=== PATIENT | male | born 1960 | race Caucasian/White ===

== ENCOUNTER 2021-03-17 09:40 | Inpatient (IN) | payer BC ==
[2021-03-17 10:45] LABS: Basophils % 0.3 % (0-1.3); Hematocrit 41.5 % (39.6-49.0); Lymphocytes % 6.3 % (15.3-44.8); MPV 7.6 fL (7.6-11.3); RBC Red Blood Cell Count 4.57 M/uL (4.33-5.43)
[2021-03-17] MEDS ORDERED: FAMOTIDINE 20 MG/2 ML VIAL IV ONE (10:46)
[2021-03-17] MEDS ORDERED: ONDANSETRON 4 MG/2 ML VIAL ONE (10:46)
[2021-03-17] MEDS ORDERED: MORPHINE 4 MG/ML SYR ONE (10:46)
[2021-03-17 10:55] LABS: ALT/SGPT 26 U/L (12-78); AST/SGOT 13 U/L (15-37); Albumin 3.8 g/dL (3.4-5.0); Alkaline Phosphatase 83 U/L (45-117); BUN Blood Urea Nitrogen 13 mg/dL (7-18); Bicarbonate 28 mmol/L (21-32); Bilirubin Direct 0.2 mg/dL (0-0.2); Bilirubin Total 0.7 mg/dL (0.2-1.0); Glucose Level 133 mg/dL (74-106); Lipase 105 U/L (73-393); Potassium 4.1 mmol/L (3.5-5.1); Protein, Total 7.4 g/dL (6.4-8.2); Sodium Level 137 mmol/L (136-145); Troponin (Emerg Dept Use Only) < 0.02 ng/mL (0.0-0.045)
--- NOTE | 2021-03-17 11:33 | RAD REPORT ---
EXAM DESCRIPTION: CT - Abdomen Pelvis W Contrast - 03/17/2021 11:07 am CLINICAL HISTORY: ABD PAIN COMPARISON: No comparisons TECHNIQUE: Biphasic, helical CT imaging of the abdomen and pelvis was performed following 100 ml non -ionic IV contrast. No oral contrast administered. All CT scans are performed using dose optimization technique as appropriate and may include automated exposure control or mA/KV adjustment according to patient size. FINDINGS: No suspicious findings in the lung bases. The liver, spleen, and pancreas show no suspicious findings. Well filled, nondilated gallbladder is s een without wall thickening or edema. There are numerous gallstones present the gallbladder with a 10 millimeter stone at the neck. No biliary tree dilatation. Symmetric renal function is seen with no hydronephrosis or suspicious renal mass. No pyelonephritis o r acute parenchymal process. No bladder abnormalities. No adrenal abnormalities. No dilated bowel loops or bowel wall thickening. Appendix is not clearly defined. No evidence for arina endicitis. Patient has a few small sub centimeter central mesentery and right lower quadrant lymph no deep. No free air, free fluid or inflammatory stranding. Small fat filled bilateral inguinal hernias are present. No suspicious bony findings. IMPRESSION: Contrast enhanced CT abdomen and pelvis showing no emergent finding. Multi stone cholelithiasis is present without wall thickening or edema. No biliary tree dilatation.
--- NOTE | 2021-03-17 11:51 | ER ---
Nurse's Notes [facility] Name: Wing Lowe Age: 61 yrs Sex: Male : 1960 Arrival Date: 03/17/2021 Time: 09:43 Bed 13 Private MD: Diagnosis: Cholelithiasis Presentation: 03/17 09:49 Chief complaint: Patient states: Epigastric pain with N/V since 1030 last night. ll1 Coronavirus screen: Client denies travel out of the [place] in the last 14 days. At this time, the client does not indicate any symptoms associated with coronavirus-19. Ebola Screen: Patient denies travel to an Ebola-affected area in the 21 days before illness onset. Initial Sepsis Screen: Does the patient meet any 2 criteria? No. Patient's initial sepsis screen is negative. Does the patient have a suspected source of infection? Yes: Acute abdominal pain. Risk Assessment: Do you want to hurt yourself or someone else? Patient reports no desire to harm self or others. Onset of symptoms was March 16, 2021. 09:49 Method Of Arrival: Ambulatory [facility] 09:49 Acuity: SAEID 3 ll1 Triage Assessment: 11:00 General: Appears in no apparent distress. Behavior is calm, cooperative, appropriate tr6 for age. Pain: Complains of pain in RUQ. EENT: No deficits noted. Neuro: No deficits noted. Cardiovascular: No deficits noted. Respiratory: No deficits noted. GI: Reports painin RUQ. : No deficits noted. : No deficits noted. 11:00 Musculoskeletal: No deficits noted. tr6 Historical: - Allergies: 09:50 PENICILLINS; ll1 - PMHx: 09:50 Hypertension; ll1 - PSHx: 09:50 ear SX; ll1 - Immunization history:: Flu vaccine is not up to date. - Social history:: Smoking status: Patient denies any tobacco usage or history of. Screenin:12 Abuse screen: Denies threats or abuse. Denies injuries from another. Nutritional tr6 screening: No deficits noted. Tuberculosis screening: No symptoms or risk factors identified. Fall Risk None identified. Assessment: 12:05 Reassessment: Patient states feeling better. tr6 Vital Signs: 09:49 Pulse 92; Resp 17; Temp 97.5; Pulse Ox 99% ; Weight 92.99 kg; Height 5 ft. 10 in. ll1 (177.80 cm); Pain 9/10; 09:49 BP 173 / 99; ll1 11:12 BP 167 / 99; Pulse 72; Resp 18; Pulse Ox 96% on R/A; tr6 09:49 Body Mass Index 29.41 (92.99 kg, 177.80 cm) ll1 ED Course: 09:43 Patient arrived in ED. as 09:50 Triage completed. ll1 09:51 Arm band placed on. ll1 10:02 Zaid Malik, SALVATORE is PHCP. pm1 10:02 Gregory Hassan MD is Attending Physician. pm1 10:13 Caty Arora, VICK is Primary Nurse. tr6 10:25 Inserted saline lock: 18 gauge in right antecubital area, using aseptic technique. tr6 Blood collected. 11:07 CT Abd/Pelvis - IV Contrast Only In Process Unspecified. EDMS 11:12 Patient has correct armband on for positive identification. Bed in low position. Call tr6 light in reach. Side rails up X 1. 11:12 No provider procedures requiring assistance completed. tr6 11:50 Marlon Nj MD is Referral Physician. pm1 12:12 IV discontinued, intact, bleeding controlled, No redness/swelling at site. Pressure tr6 dressing applied. Administered Medications: 10:35 Drug: Pepcid (famotidine) 20 mg Route: IVP; Site: right antecubital; tr6 12:11 Follow up: Response: No adverse reaction; Pain is decreased tr6 10:35 Drug: morphine 4 mg Route: IVP; Site: right antecubital; tr6 12:11 Follow up: Response: No adverse reaction; Pain is decreased tr6 10:35 Drug: Zofran (Ondansetron) 4 mg Route: IVP; Site: right antecubital; tr6 12:11 Follow up: Response: No adverse reaction; Pain is decreased tr6 Outcome: 11:50 Discharge ordered by . pm1 12:11 Discharged to home ambulatory. tr6 12:11 Condition: improved 12:11 Discharge instructions given to patient, significant other, Instructed on discharge instructions, follow up and referral plans. no drinking with medication, medication usage, safety practices, Demonstrated understanding of instructions, follow-up care, medications, Prescriptions given X 2. 12:12 Patient left the ED. tr6 Signatures: Dispatcher [employer] Yesica Zarate Patrick, NP DROP WIRE ALIGNER pm1 Dora David RN RN ll1 Caty Arora RN RN tr6
--- NOTE | 2021-03-17 11:51 | EDPHYS ---
Physician Documentation [facility] Name: Wing Lowe Age: 61 yrs Sex: Male : 1960 Arrival Date: 03/17/2021 Time: 09:43 Bed 13 Private MD: ED Physician Gregory Hassan HPI: 03/17 10:08 This 61 yrs old Male presents to ER via Ambulatory with complaints of Abdominal Pain. pm1 10:08 The patient presents with abdominal pain in the epigastric area. Onset: The pm1 symptoms/episode began/occurred last night, at 22:00. The symptoms do not radiate. Associated signs and symptoms: Pertinent positives: nausea with one episode of vomiting, Pertinent negatives: chest pain, diarrhea, fever, shortness of breath. The symptoms are described as persistent. Modifying factors: The symptoms are alleviated by nothing, the symptoms are aggravated by movement. Severity of pain: in the emergency department the pain is unchanged is a 8 / 10 some slight improvement with Pepto Bismol but he ended up vomiting the medicine. The patient has not experienced similar symptoms in the past. Historical: - Allergies: 09:50 PENICILLINS; ll1 - PMHx: 09:50 Hypertension; ll1 - PSHx: 09:50 ear SX; ll1 - Immunization history:: Flu vaccine is not up to date. - Social history:: Smoking status: Patient denies any tobacco usage or history of. ROS: 10:08 Constitutional: Negative for fever, chills, and weight loss, Cardiovascular: Negative pm1 for chest pain, palpitations, and edema, Respiratory: Negative for shortness of breath, cough, wheezing, and pleuritic chest pain. 10:08 Eyes: Negative for injury, pain, redness, and discharge, ENT: Negative for injury, pain, and discharge, Back: Negative for injury and pain, : Negative for injury, bleeding, discharge, and swelling, MS/Extremity: Negative for injury and deformity, Skin: Negative for injury, rash, and discoloration, Neuro: Negative for headache, weakness, numbness, tingling, and seizure. 10:08 Abdomen/GI: Positive for abdominal pain, nausea and vomiting, of the epigastric area, Negative for diarrhea, constipation. Exam: 10:08 Constitutional: This is a well developed, well nourished patient who is awake, alert, pm1 and in no acute distress. Head/Face: Normocephalic, atraumatic. 10:08 Chest/axilla: Normal chest wall appearance and motion. Nontender with no deformity. No lesions are appreciated. 10:08 Back: No spinal tenderness. No costovertebral tenderness. Full range of motion. Skin: Warm, dry with normal turgor. Normal color with no rashes, no lesions, and no evidence of cellulitis. MS/ Extremity: Pulses equal, no cyanosis. Neurovascular intact. Full, normal range of motion. 10:08 Eyes: Exam is negative for acute changes, Extraocular movements: intact throughout, Conjunctiva: no acute changes, Sclera: no appreciated abnormality, icterus, is not appreciated. 10:08 ENT: Mouth: Lips: normal, Oral mucosa: normal, pink and intact, moist. 10:08 Cardiovascular: Rate: normal, Rhythm: regular, Pulses: no pulse deficits are appreciated, Heart sounds: normal, Edema: is not appreciated. 10:08 Respiratory: Exam negative for acute changes, respiratory distress, shortness of breath. 10:08 Abdomen/GI: Inspection: abdomen appears normal, Palpation: soft, in all quadrants, mild abdominal tenderness, in the epigastric area. 10:08 Neuro: Exam negative for acute changes, Orientation: is normal, Mentation: is normal, Motor: is normal, moves all fours. Vital Signs: 09:49 Pulse 92; Resp 17; Temp 97.5; Pulse Ox 99% ; Weight 92.99 kg; Height 5 ft. 10 in. ll1 (177.80 cm); Pain 9/10; 09:49 BP 173 / 99; ll1 11:12 BP 167 / 99; Pulse 72; Resp 18; Pulse Ox 96% on R/A; tr6 09:49 Body Mass Index 29.41 (92.99 kg, 177.80 cm) ll1 MDM: 10:02 Patient medically screened. [facility] 11:47 Data reviewed: vital signs. Data interpreted: Pulse oximetry: on room air is 96 %. pm1 Interpretation: normal. 11:47 Counseling: I had a detailed discussion with the patient and/or guardian regarding: the pm1 historical points, exam findings, and any diagnostic results supporting the discharge/admit diagnosis, lab results, radiology results, the need for outpatient follow up, a general surgeon, Patient reports pain decreased to 4-5/10 from 06/03. Patient feels that pain is tolerable. Offered the patient admission. He feels comfortable going home and will call Dr. Nj's office for a follow up visit. Discussed return precautions.. 03/17 10:08 Order name: Basic Metabolic Panel; Complete Time: 10:58 pm03/17 10:08 Order name: CBC with Diff pm1 03/17 10:08 Order name: Hepatic Function; Complete Time: 10:58 pm03/17 10:08 Order name: Lipase; Complete Time: 10:58 pm03/17 10:08 Order name: Troponin (emerg Dept Use Only); Complete Time: 10:58 pm03/17 10:08 Order name: CT Abd/Pelvis - IV Contrast Only; Complete Time: 11:34 pm03/17 10:08 Order name: IV Saline Lock; Complete Time: 10:24 pm03/17 10:08 Order name: Labs collected and sent; Complete Time: 10:24 pm03/17 10:08 Order name: EKG; Complete Time: 10:09 pm03/17 10:08 Order name: EKG - Nurse/Tech; Complete Time: 10:51 pm1 Administered Medications: 10:35 Drug: Pepcid (famotidine) 20 mg Route: IVP; Site: right antecubital; tr6 12:11 Follow up: Response: No adverse reaction; Pain is decreased tr6 10:35 Drug: morphine 4 mg Route: IVP; Site: right antecubital; tr6 12:11 Follow up: Response: No adverse reaction; Pain is decreased tr6 10:35 Drug: Zofran (Ondansetron) 4 mg Route: IVP; Site: right antecubital; tr6 12:11 Follow up: Response: No adverse reaction; Pain is decreased tr6 Disposition: 03/18 09:47 Co-signature as Attending Physician, Gregory Hassan MD I agree with the assessment and simi plan of care. Disposition: 03/17/21 11:50 Discharged to Home. Impression: Cholelithiasis. - Condition is Stable. - Discharge Instructions: Cholelithiasis. - Prescriptions for Zofran ODT 4 mg Oral tablet,disintegrating - place 1 tablet by TRANSLINGUAL route every 8 hours As needed; 12 tablet. Tylenol- Codeine #3 300-30 mg Oral Tablet - take 2 tablets by ORAL route every 4-6 hours As needed; 20 tablet. - Medication Reconciliation Form, Thank You Letter, Antibiotic Education, Prescription Opioid Use, Work release form form. - Follow up: Emergency Department; When: As needed; Reason: Worsening of condition. Follow up: Marlon Nj MD; When: 2 - 3 days; Reason: Recheck today's complaints, Continuance of care, Re-evaluation by your physician. - Problem is new. - Symptoms have improved. Signatures: Dispatcher [employer] EDMS Gregory Hassan MD MD cha Marinas, Patrick, NP FIXED INCOME TRADING VICE PRESIDENT pm1 Dora David RN RN ll1 Caty Arora RN RN tr6 Corrections: (The following items were deleted from the chart) 03/17 12:12 11:50 03/17/2021 11:50 Discharged to Home. Impression: Cholelithiasis. Condition is tr6 Stable. Forms are Medication Reconciliation Form, Thank You Letter, Antibiotic Education, Prescription Opioid Use. Follow up: Emergency Department; When: As needed; Reason: Worsening of condition. Follow up: Marlon Nj; When: 2 - 3 days; Reason: Recheck today's complaints, Continuance of care, Re-evaluation by your physician. Problem is new. Symptoms have improved. pm1
[2021-03-17 12:16] LABS: Blood Morphology Comment NOT SEEN (NOT SEEN); Platelet Estimate ADEQ
[2021-03-17] MEDS ORDERED: MORPHINE 4 MG/ML SYR IV PRN (21:09)
[2021-03-17] MEDS ORDERED: HYDROMORPHONE HCL 1 MG/ML INJ IV PRN (21:09)
[2021-03-17] MEDS ORDERED: D5 0.45 NS 1,000 ML IV SCH (22:00)
[2021-03-18 01:44] VITALS: BMI 29.4
[2021-03-18] MEDS ORDERED: MORPHINE 4 MG/ML SYR IV PRN (01:51)
[2021-03-18] MEDS ORDERED: HYDROMORPHONE HCL 1 MG/ML INJ IV PRN (01:51)
[2021-03-18] MEDS: D5 0.45 NS 1,000 ML IV SCH ×3 (02:24→17:49)
[2021-03-18 04:02] LABS: Basophils % 0.4 % (0-1.3); Hematocrit 41.6 % (39.6-49.0); Lymphocytes % 5.7 % (15.3-44.8); RBC Red Blood Cell Count 4.52 M/uL (4.33-5.43)
[2021-03-18 04:13] LABS: BUN Blood Urea Nitrogen 10 mg/dL (7-18); Bicarbonate 30 mmol/L (21-32); Glucose Level 140 mg/dL (74-106); Lipase 90 U/L (73-393); Sodium Level 138 mmol/L (136-145)
[2021-03-18] MEDS ORDERED: HYDROMORPHONE HCL 2 MG/ML inj ONE (05:07)
[2021-03-18] MEDS ORDERED: CEFOXITIN SODIUM 1 GM/VIAL IVPB SCH ×2 (06:00)
[2021-03-18] MEDS: CEFOXITIN/SWI 1gm 1 GM/10 ML SYR IV SCH ×3 (06:34→17:50)
[2021-03-18] MEDS ORDERED: D5 0.45 NS 1,000 ML IV ONE (10:35)
--- NOTE | 2021-03-18 11:35 | EKG ---
Test Date: 2021-03-17 Test Time: 10:35:22 Office Machine Inspector: VALDO MEASUREMENT RESULTS: Intervals: Rate: 83 KS: 162 QRSD: 84 QT: 360 QTc: [address] [place]: P: 50 KS: 162 QRS: 30 T: 45 INTERPRETIVE STATEMENTS: Normal sinus rhythm Normal ECG No previous ECG available for comparison Electronically Signed On 03-18-21 11:31:21 CDT by Arsalan Crandall
[2021-03-18] MEDS ORDERED: Ringers Lactate 1,000 ML IV ONE (13:08)
--- NOTE | 2021-03-18 13:50 | P.HP ---
Date of Service: 03/18/21 PC: This 61-year-old male presents emergency room with severe right upper quadrant abdominal pain for diagnosis and treatment. HPC: Patient and sudden onset of severe right upper quadrant abdominal pain, radiating into his back. Came to the emergency room yesterday morning for evaluation. Was found have cholelithiasis. Patient was discharged after his pain had been managed. However the pain returned later on yesterday evening, and he found himself back in the ER. PMH: Mitral valve prolapse PSHx: Negative SOC: Allergic to penicillin SYS REVIEW: No cough, wheeze, shortness of breath. No chest pain or palpitations. Denies any urinary complaints. Says he has good exercise tolerance. O/E awake alert vital signs are stable HEENT: Nonicteric Chest: Air entry equal bilaterally ABD: Mild right upper quadrant discomfort LOCO: Intact DATA: CT scan shows cholelithiasis, 1 stone very close to the neck of the gallbladder IMPRESSION: Cholelithiasis with biliary colic PLAN: I will take him the operating room for laparoscopic possible open cholecystectomy with cholangiogram. The risks of this procedure have been discussed. The possibility of bleeding, infection, injury to bile ducts blood vessels intestines has been described. The possible need for an open and/or further surgeries and procedures was discussed. He understands and wants us to proceed.
[2021-03-18] MEDS ORDERED: MIDAZOLAM HCL 2 MG/2 ML INJ ONE (14:10)
[2021-03-18] MEDS ORDERED: FENTANYL CITR 100 MCG/2 ML ONE (14:10)
[2021-03-18] MEDS ORDERED: propofoL 200 MG/20 ML VIAL IV ONE (14:10)
[2021-03-18] MEDS ORDERED: dexAMETHasone 10 MG/ML VIAL ONE (14:11)
[2021-03-18] MEDS ORDERED: KETOROLAC 30 MG/ML INJ ONE (14:11)
[2021-03-18] MEDS ORDERED: ROCURONIUM 50 MG/5 ML VIAL IV ONE (14:11)
[2021-03-18] MEDS ORDERED: LIDOCAINE 2% MPF 5 ML VIAL ONE (14:11)
[2021-03-18] MEDS ORDERED: ONDANSETRON 4 MG/2 ML VIAL ONE (14:11)
[2021-03-18] MEDS ORDERED: NEOSTIGMINE 1 MG/ML -5 ML ONE (15:52)
[2021-03-18] MEDS ORDERED: GLYCOPYRROLATE 0.2 MG/ML SYR ONE (15:52)
--- NOTE | 2021-03-18 16:04 | P.OP ---
Preoperative diagnosis: Cholecystitis with cholelithiasis Postoperative diagnosis: Gangrene of the gallbladder with cholelithiasis Primary procedure: Cholecystectomy Secondary procedure: Intraoperative cholangiogram Other procedure(s): Crescencio block Anesthesia: General Estimated blood loss: Less than 30 cc Specimen: 1 gallbladder and contents Operative Technique: The patient brought to the operating room placed supine on the table. After the induction of adequate general endotracheal anesthesia, there the abdomen was prepped with a DuraPrep solution, and he was draped in usual aseptic manner. A subumbilical incision was made. This was brought down through the skin and subcutaneous tissue. The Visiport was used to enter the peritoneal cavity and create a pneumoperitoneum to approximately 12 mm of mercury. Under direct vision a 5 mm trocar was placed in the upper midline. 2 5 mm trocars were also placed on the right lateral side. Attention was turned towards right upper quadrant. With the bed placed in reverse Trendelenburg and rolled to the left were able to visualize right upper quadrant. We could see demarcated inflammatory response just at the junction of the omentum with the liver edge. Gentle dissection lattice to see that there was any intensely inflamed and partially gangrenous gallbladder in that area. Gentle dissection was be done to remove the omentum from the right hepatic a edge and distended gallbladder. We were finally able to expose both the fundus of the cystic duct. It was necessary to aspirate the contents of the gallbladder. Having done this we were now able to place a graspers on these areas. Applying lateral traction and gentle dissection was begun to show an demonstrate the critical view. This having being done the cystic duct was clipped at its junction with the gallbladder. An opening was made into the cystic duct. We were able to pass our cholangiocatheter. Intraoperative cholangiogram demonstrated good flow contrast into the duodenum. We were a little to illustrate the upper radicals. An we could see the cystic duct and its junction with the common bile duct. No filling defects were noted. The catheter was removed. Clips were now placed on the distal portion of the cystic duct. The cystic duct was now divided. Dissection was now begun to elevate the gallbladder and begin terminated from the liver bed. The cystic artery having been identified was clipped and divided in the usual manner. Dissection now continued up on the liver bed. We were able did notice areas of pronounced thinning of the gallbladder wall, as well as inflammation and areas of patchy gangrene. The gallbladder having mean detached was now placed into an Endo-Catch and brought out through the umbilical trocar site. The was necessary also to open umbilical trocar skin site where the large thickened gallbladder would not pass through the opening. The was induced in O2 that the patient does have an umbilical hernia which we tried to approximate we would use the Endo Close to close the peritoneal defects. The abdomen was once again inspected to ensure adequate hemostasis. The liver bed was noted to have some points of oozing which were controlled using electro cautery. There was also irrigated with a copious amount of saline solution. A 10 mm trocar was introduced into the peritoneal cavity. It was placed into the subhepatic space, and brought out through the lateral 5 mm trocar. At this point the pneumoperitoneum was collapsed, the trocars removed, and suresh applied to the skin. At the end of procedure he was in a stable condition when sent to the recovery room. Needle sponge instrument count were correct. Complications: None Drain(s): EMILIA drain Transferred to: Recovery Room Condition: Good
[2021-03-18] MEDS ORDERED: ONDANSETRON 4 MG/2 ML VIAL IV PRN (16:09)
[2021-03-18] MEDS: Ringers Lactate 1,000 ML IV SCH ×2 (16:09→21:52)
--- NOTE | 2021-03-18 16:45 | RAD REPORT ---
EXAM DESCRIPTION: RAD - Cholangiogram Oper-Xray Or - 03/18/2021 4:38 pm FINDINGS: Two portable C-arm views were submitted from intraoperative cholangiogram. Assessment is l imited when only selected images are available. Fluoro time was 0.3 minutes. Cumulative dose was 4.83 mGy.
[2021-03-18] MEDS ORDERED: CEFOXITIN/SWI 1gm 1 GM/10 ML SYR IV SCH (22:00)
[2021-03-19] MEDS: Ringers Lactate 1,000 ML IV SCH (00:09)
[2021-03-19] MEDS: CEFOXITIN/SWI 1gm 1 GM/10 ML SYR IV SCH ×3 (00:39→12:00)
[2021-03-19 01:28] VITALS: O2SAT 95
[2021-03-19] MEDS ORDERED: Ringers Lactate 1,000 ML IV SCH (03:37)
[2021-03-19] MEDS: HYDROCODONE/APAP 7.5/325 MG TAB PO PRN ×2 (06:19→13:38)
[2021-03-19 06:27] LABS: Basophils % 0.2 % (0-1.3); Hematocrit 38.9 % (39.6-49.0); Lymphocytes % 7.4 % (15.3-44.8); MPV 7.5 fL (7.6-11.3); RBC Red Blood Cell Count 4.22 M/uL (4.33-5.43)
[2021-03-19 06:44] LABS: BUN Blood Urea Nitrogen 14 mg/dL (7-18); Bicarbonate 29 mmol/L (21-32); Glucose Level 118 mg/dL (74-106); Potassium 4.3 mmol/L (3.5-5.1); Sodium Level 136 mmol/L (136-145)
[2021-03-19 06:45] LABS: ALT/SGPT 57 U/L (12-78); AST/SGOT 34 U/L (15-37); Albumin 2.8 g/dL (3.4-5.0); Alkaline Phosphatase 70 U/L (45-117); Bilirubin Direct 0.2 mg/dL (0-0.2); Bilirubin Total 0.9 mg/dL (0.2-1.0); Protein, Total 6.2 g/dL (6.4-8.2)
[2021-03-19 12:18] VITALS: BP 125/84; TEMP 97.5
== END 2021-03-19 15:45 | disposition home or self-care (01) | DRG 419 ==
LOC: ER 09:40 → ERHOLD 21:07 → UNDOADMIN 21:07 → ERHOLD 03-18 00:08 → 4TH 03-18 00:08
PROVIDERS: ADMIT Surgery; ATTEND Surgery
PROC: BF00YZZ Plain Radiography of Bile Ducts using Other Contrast (ICD-10-PCS; 2021-03-18)
PROC: 0FT44ZZ Resection of Gallbladder, Percutaneous Endoscopic Approach (ICD-10-PCS; principal; 2021-03-18 14:15)
DX: K80.00 Calculus of gallbladder with acute cholecystitis without obstruction (principal); K82.A1 Gangrene of gallbladder in cholecystitis; I10 Essential (primary) hypertension; I34.1 Nonrheumatic mitral (valve) prolapse; Z88.0 Allergy status to penicillin
CPT/HCPCS: 36415; 74177; 74300; 80048; 80076; 83690; 84484; 85025; 88304; 93005; 94010; 96374; 96375; 99284; J1100; J1170; J2250; J2405; J2704; J2710; J3010; J7120; J7799; Q9967

== ENCOUNTER → 2021-03-17 | Emergency (ER) | payer BC ==
[~2021-03-17] MED LIST: CEFOXITIN/SWI 1gm 1 GM/10 ML SYR ONE; FENTANYL CITR 100 MCG/2 ML ONE; MORPHINE 4 MG/ML SYR ONE; NA CHLORIDE 0.9% 1,000 ML ONE; ONDANSETRON 4 MG/2 ML VIAL ONE
--- NOTE | 2021-03-17 21:05 | EDPHYS ---
Physician Documentation [facility] Name: Wing Lowe Age: 61 yrs Sex: Male : 1960 Arrival Date: 03/17/2021 Time: 18:21 Bed 13 Private MD: ED Physician Santos Gamez HPI: 03/18 01:05 This 61 yrs old Male presents to ER via Ambulatory with complaints of tw4 Abdominal Pain. 01:05 The patient presents with abdominal pain. Onset: The symptoms/episode began/occurred tw4 today. The symptoms do not radiate. The symptoms are described as Pertinent positives: nausea, vomiting, and diarrhea, nausea and vomiting, Pertinent negatives: anorexia, blood in stools, chest pain, constipation, diarrhea, dysuria, fever, headache, hematuria, nausea, palpitations, shortness of breath, testicular pain, sharp. Modifying factors: The symptoms are alleviated by remaining still, the symptoms are aggravated by breathing deeply, movement, pressure. Severity of pain: At its worst the pain was moderate in the emergency department the pain has resolved. The patient has not experienced similar symptoms in the past. Historical: - Allergies: 03/17 18:25 PENICILLINS; ca1 - Home Meds: 18:25 Lotrel 5-20 mg Oral cap 1 cap once daily [Active]; ca1 - PMHx: 18:25 Hypertension; ca1 - PSHx: 18:25 ear SX; ca1 - Immunization history:: Client reports receiving the 2nd dose of the Covid vaccine, Client reports receiving the 1st dose of the Covid vaccine, Flu vaccine is not up to date. - Social history:: Smoking status: Patient denies any tobacco usage or history of. ROS: 03/18 01:05 Constitutional: Negative for fever, chills, and weight loss, Eyes: Negative for injury, tw4 pain, redness, and discharge, Cardiovascular: Negative for chest pain, palpitations, and edema, Respiratory: Negative for shortness of breath, cough, wheezing, and pleuritic chest pain, Back: Negative for injury and pain, MS/Extremity: Negative for injury and deformity, Skin: Negative for injury, rash, and discoloration, Neuro: Negative for headache, weakness, numbness, tingling, and seizure. Abdomen/GI: Positive for abdominal pain, nausea and vomiting, nausea, vomiting, and diarrhea, nausea, vomiting, Negative for diarrhea, constipation, dysphagia, hematemesis, black/tarry stool, rectal pain, rectal bleeding, bowel incontinence, flatulence. Exam: 01:05 Constitutional: This is a well developed, well nourished patient who is awake, alert, tw4 and in no acute distress. Head/Face: Normocephalic, atraumatic. Chest/axilla: Normal chest wall appearance and motion. Nontender with no deformity. No lesions are appreciated. Cardiovascular: Regular rate and rhythm with a normal S1 and S2. No gallops, murmurs, or rubs. Normal PMI, no JVD. No pulse deficits. Respiratory: Lungs have equal breath sounds bilaterally, clear to auscultation and percussion. No rales, rhonchi or wheezes noted. No increased work of breathing, no retractions or nasal flaring. 01:05 Back: No spinal tenderness. No costovertebral tenderness. Full range of motion. Skin: Warm, dry with normal turgor. Normal color with no rashes, no lesions, and no evidence of cellulitis. MS/ Extremity: Pulses equal, no cyanosis. Neurovascular intact. Full, normal range of motion. Neuro: Awake and alert, GCS 15, oriented to person, place, time, and situation. Cranial nerves II-XII grossly intact. Motor strength 5/5 in all extremities. Sensory grossly intact. Cerebellar exam normal. Normal gait. 01:05 Abdomen/GI: Inspection: abdomen appears normal, Bowel sounds: diminished, Palpation: moderate abdominal tenderness, in the right upper quadrant. Vital Signs: 03/17 18:22 Pulse 94; Resp 18 S; Temp 97.2(TE); Pulse Ox 98% ; Weight 92.99 kg (R); Height 5 ft. 10 ca1 in. (177.80 cm) (R); Pain 9/10; 18:25 BP 151 / 100; ca1 21:01 BP 141 / 84; Pulse 86; Resp 20; Pulse Ox 99% on R/A; ak2 23:04 BP 135 / 75; Pulse 84; Resp 16; Pulse Ox 99% on R/A; ak2 03/18 00:08 BP 117 / 78; Pulse 75; Resp 18; Pulse Ox 100% on R/A; ak2 03/17 18:22 Body Mass Index 29.41 (92.99 kg, 177.80 cm) ca1 MDM: 03/17 19:17 Patient medically screened. tw4 03/18 01:05 Differential diagnosis: AAA, acute coronary syndrome. Data reviewed: vital signs, tw4 nurses notes. Data interpreted: Pulse oximetry: Interpretation: normal. Counseling: I had a detailed discussion with the patient and/or guardian regarding: the historical points, exam findings, and any diagnostic results supporting the discharge/admit diagnosis. Special discussion: I discussed with the patient/guardian in detail that at this point there is no indication for admission to the hospital. It is understood, however, that if the symptoms persist or worsen the patient needs to return immediately for re-evaluation. 03/17 21:13 Order name: COVID-19 : Document "Date of Symptom Onset" if Symptomatic. mw2 03/17 19:42 Order name: US Abdomen Limited tw4 03/17 23:04 Order name: SARS-COV-2 RT PCR EDMS Administered Medications: 03/17 19:54 Drug: NS 0.9% 1000 ml Route: IV; Rate: 1 bolus; Site: right antecubital; ak2 19:54 Drug: morphine 4 mg Route: IVP; Site: right antecubital; ak2 19:54 Drug: Zofran (Ondansetron) 4 mg Route: IVP; Site: right antecubital; ak2 21:42 Drug: fentaNYL (PF) 50 mcg Route: IVP; Site: right antecubital; ak2 Disposition: 03/17/21 21:04 Hospitalization ordered by Marlon Nj for Inpatient Admission. Preliminary diagnosis are Cholelithiasis, Abdominal tenderness. - Bed requested for Telemetry/MedSurg (Inpatient). - Status is Inpatient Admission. mw2 - Condition is Stable. - Problem is new. - Symptoms have improved. Signatures: Dispatcher [employer] EDDC Santos Gamez MD MD tw4 Criss Villarreal mw2 Michelle Pelayo RN RN ca1 Sammy Connell ak2 Corrections: (The following items were deleted from the chart) 21:39 21:14 CORONAVIRUS ordered. EDDC EDDC 03/18 00:05 03/17 21:04 Hospitalization Ordered by Marlon Nj MD for Inpatient Admission. mw2 Preliminary diagnosis is Cholelithiasis; Abdominal tenderness. Bed requested for Telemetry/MedSurg (Inpatient). Status is Inpatient Admission. Condition is Stable. Problem is new. Symptoms have improved. tw4 03/18 01:19 00:05 03/17/2021 21:04 Hospitalization Ordered by Marlon Nj MD for Inpatient mw2 Admission. Preliminary diagnosis is Cholelithiasis; Abdominal tenderness. Bed requested for Telemetry/MedSurg (Inpatient). Status is Inpatient Admission. Condition is Stable. Problem is new. Symptoms have improved. mw2
--- NOTE | 2021-03-17 21:05 | ER ---
Nurse's Notes [facility] Name: Wing Lowe Age: 61 yrs Sex: Male : 1960 Arrival Date: 03/17/2021 Time: 18:21 Bed 13 Private MD: Diagnosis: Cholelithiasis;Abdominal tenderness Presentation: 03/17 18:22 Chief complaint: Patient states: Was here this morning and was diagnosed with ca1 cholelithiasis. Was going to see Dr. Nj tomorrow, but pain has been unbearable and started vomiting again. Coronavirus screen: Client denies travel out of the [place] in the last 14 days. nausea, vomiting. Client presents with at least one sign or symptom that may indicate coronavirus-19. Standard/surgical mask placed on the client. Provider contacted for isolation considerations. Ebola Screen: Patient negative for fever greater than or equal to 101.5 degrees Fahrenheit, and additional compatible Ebola Virus Disease symptoms Patient denies exposure to infectious person. Patient denies travel to an Ebola-affected area in the 21 days before illness onset. No symptoms or risks identified at this time. Initial Sepsis Screen: Does the patient meet any 2 criteria? No. Patient's initial sepsis screen is negative. Does the patient have a suspected source of infection? No. Patient's initial sepsis screen is negative. Risk Assessment: Do you want to hurt yourself or someone else? Patient reports no desire to harm self or others. Onset of symptoms was March 17, 2021. 18:22 Method Of Arrival: Ambulatory ca1 18:22 Acuity: SAEID 3 ca1 Triage Assessment: 21:43 General: Appears in no apparent distress. Behavior is calm, cooperative, appropriate ak2 for age. Pain: Denies pain. GI: Abdomen is non-distended. Historical: - Allergies: 18:25 PENICILLINS; ca1 - Home Meds: 18:25 Lotrel 5-20 mg Oral cap 1 cap once daily [Active]; ca1 - PMHx: 18:25 Hypertension; ca1 - PSHx: 18:25 ear SX; ca1 - Immunization history:: Client reports receiving the 2nd dose of the Covid vaccine, Client reports receiving the 1st dose of the Covid vaccine, Flu vaccine is not up to date. - Social history:: Smoking status: Patient denies any tobacco usage or history of. Screenin:42 Abuse screen: Denies threats or abuse. Denies injuries from another. Nutritional ak2 screening: No deficits noted. Tuberculosis screening: No symptoms or risk factors identified. Fall Risk None identified. Assessment: 21:43 GI: Bowel sounds present X 4 quads. Abd is soft and non tender X 4 quads. ak2 03/18 01:06 General: report called to rn. ak2 Vital Signs: 03/17 18:22 Pulse 94; Resp 18 S; Temp 97.2(TE); Pulse Ox 98% ; Weight 92.99 kg (R); Height 5 ft. 10 ca1 in. (177.80 cm) (R); Pain 9/10; 18:25 BP 151 / 100; ca1 21:01 BP 141 / 84; Pulse 86; Resp 20; Pulse Ox 99% on R/A; ak2 23:04 BP 135 / 75; Pulse 84; Resp 16; Pulse Ox 99% on R/A; ak2 03/18 00:08 BP 117 / 78; Pulse 75; Resp 18; Pulse Ox 100% on R/A; ak2 03/17 18:22 Body Mass Index 29.41 (92.99 kg, 177.80 cm) ca1 ED Course: 03/17 18:21 Patient arrived in ED. ca1 18:24 Triage completed. ca1 18:25 Arm band placed on right wrist. ca1 19:17 Santos Gamez MD is Attending Physician. tw4 19:27 Sammy Connell is Primary Nurse. ak2 20:30 US Abdomen Limited In Process Unspecified. EDMS 21:04 Marlon Nj MD is Hospitalizing Provider. tw4 21:42 Patient has correct armband on for positive identification. Bed in low position. ak2 21:43 No provider procedures requiring assistance completed. Inserted saline lock: 20 gauge ak2 in right antecubital area, using aseptic technique. Administered Medications: 19:54 Drug: NS 0.9% 1000 ml Route: IV; Rate: 1 bolus; Site: right antecubital; ak2 19:54 Drug: morphine 4 mg Route: IVP; Site: right antecubital; ak2 19:54 Drug: Zofran (Ondansetron) 4 mg Route: IVP; Site: right antecubital; ak2 21:42 Drug: fentaNYL (PF) 50 mcg Route: IVP; Site: right antecubital; ak2 Outcome: 21:04 Decision to Hospitalize by Provider. tw4 03/18 01:19 Patient left the ED. mw2 Signatures: Dispatcher [employer] Santos Feliz MD MD tw4 Criss Villarreal mw2 Michelle Pelayo RN RN [facility] Sammy Connell mt2
[2021-03-18 02:30] VITALS: TEMP 97.2
[2021-03-18 02:36] VITALS: BP 117/78; O2SAT 100
--- NOTE | 2021-03-18 11:34 | RAD REPORT ---
EXAM DESCRIPTION: US - Abdomen Exam Limited - 03/17/2021 8:30 pm CLINICAL HISTORY: ABD PAIN COMPARISON: No comparisons FINDINGS: The gallbladder demonstrates multiple shadowing gallstones. No pericholecystic fluid or ga llbladder wall thickening. The common bile duct is normal measuring 4 mm. The liver demonstrates no findings of intrahepatic biliary dilatation. IMPRESSION: Cholelithiasis.
== END ==
LOC: ER 18:09
DX: K80.20 Calculus of gallbladder without cholecystitis without obstruction (principal); Z20.822 Contact with and (suspected) exposure to COVID-19; I10 Essential (primary) hypertension; Z88.0 Allergy status to penicillin
CPT/HCPCS: 76705; U0003; J3010; J7030; J2405; 96374; 96375; 99283